=== PATIENT | male | born 1985 | race Hispanic/Latino ===

== ENCOUNTER 2020-02-25 13:01 | Emergency (ER) | payer SELFPAY, OTHER ==
[2020-02-25] MEDS ORDERED: Acetaminophen 500 MG TAB ONE (13:22)
[2020-02-25] MEDS ORDERED: Metoclopramide HCl 10 MG/2 ML VIAL ONE (13:22)
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
== END 2020-02-25 14:41 | disposition home or self-care (01) ==
LOC: ERS 13:01
DX: S09.90XA Unspecified injury of head, initial encounter (principal); I10 Essential (primary) hypertension; V43.92XA Unspecified car occupant injured in collision with other type car in traffic accident, initial encounter
CPT/HCPCS: 70450; 71045; 96365; J2765